=== PATIENT | male | born 1965 | race African-American/Black ===

== ENCOUNTER 2020-09-16 05:16 | Emergency (ER) | payer OTHER ==
[~2020-09-16] VITALS: Ht 172.7 cm; Wt 81.8 kg
[2020-09-16] MEDS ORDERED: ASPIRIN CHEWABLE 81 MG TABLET. PO ONE (06:00)
--- NOTE | 2020-09-16 06:03 | RAD ---
Study: CR PORTABLE CHEST 1V Indication: Chest pain. Comparison: None. Findings: Unremarkable cardiomediastinal silhouette and linda. No lobar consolidation, pleural effusion or pneumothorax. Chronic changes seen at the right lung apex. The diaphragm is mildly flattened and the lungs are relatively hyperexpanded with the inner margin of the diaphragm at the level of the 12th ribs. Impression: 1. No acute radiographic abnormality of the chest. 2. Relative hyperexpansion of the lungs could be physiologic from aggressive inspiratory excursion or indicative of underlying COPD. Recommend correlation for a smoking history. Electronically signed by: ALEXANDRA YEPEZ MD (09/16/2020 6:01 AM) [id number]
[2020-09-16 06:12] LABS: BASO # 0.1 x10^3/uL (0.0-0.2); BASO % 1 % (0-3); EOS # 0.3 x10^3/uL (0.0-0.7); EOS % 4 % (0-3); HEMOGLOBIN 14.5 g/dL (13.0-17.5); LYMPH # 3.6 x10^3/uL (1.0-4.8); LYMPH % 40 % (24-48); MEAN CORPUSCULAR HEMOGLOBIN 35 pg (25-35); MEAN CORPUSCULAR HGB CONC 35 g/dL (31-37); MEAN CORPUSCULAR VOLUME 100 fL (79-100); MONO # 0.8 x10^3/uL (0.0-1.1); MONO % 9 % (0-9); NEUT # 4.2 x10^3/uL (1.8-7.7); NEUT % 47 % (31-73); PLATELET COUNT 201 x10^3/uL (140-400)
[2020-09-16 06:17] LABS: CALCIUM 8.8 mg/dL (8.5-10.1); CREATININE 1.2 mg/dL (0.7-1.3); GFR 76.6; POTASSIUM 3.5 mmol/L (3.5-5.1)
[2020-09-16 06:23] LABS: ALBUMIN 3.9 g/dL (3.4-5.0); ALBUMIN/GLOBULIN RATIO 1.1 (1.0-1.7); TOTAL PROTEIN 7.6 g/dL (6.4-8.2)
--- NOTE | 2020-09-16 06:23 | PHYS DOC ---
Past Medical History Past Medical History: No Pertinent History Past Surgical History: Other Additional Past Surgical Histo: Oral surgery. Smoking Status: Current Every Day Smoker Alcohol Use: Occasionally Drug Use: Marijuana General Adult EDM: Chief Complaint: CHEST PAIN HPI: HPI: Patient is a 55 year old male presents with report of substernal chest discomfort with radiation to his left arm x1 day. Patient reports some increased life stressors including the passing of his mother. Patient reports he has also been drinking more than normal over the last few days because of this. Patient presents today due to this discomfort. Patient reports he did have some relief after belching. Denies symptoms getting worse with any movement. Denies leg swelling or calf tenderness. Denies history of PE/DVT. Cardiac risk factors include family history of CAD and smoking. Denies any fever or chills. Denies known exposure to COVID-19. Review of Systems: Review of Systems: Constitutional: Denies fever or chills Eyes: Denies redness or eye pain HENT: Denies nasal congestion or sore throat Respiratory: Denies cough or shortness of breath Cardiovascular: Reports chest pain; denies palpitations GI: Denies abdominal pain, nausea, or vomiting : Denies dysuria or hematuria Musculoskeletal: Denies back pain; reports left arm pain Integument: Denies rash or skin lesions Neurologic: Denies headache, focal weakness or sensory changes Complete systems were reviewed and found to be within normal limits, except as documented in this note. Heart Score: HEART Score for Chest Pain: HEART Score for Chest Pain Response (Comments) Value History Moderately Suspicious 1 ECG Normal 0 Age >45 - < 65 1 Risk Factors 1 or 2 Risk Factors 1 Troponin < Normal Limit 0 Total 3 Risk Factors: Risk Factors: DM, Current or recent (<one month) smoker, HTN, HLP, family history of CAD, obesity. Risk Scores: Score 0 - 3: 2.5% MACE over next 6 weeks - Discharge Home Score 4 - 6: 20.3% MACE over next 6 weeks - Admit for Clinical Observation Score 7 - 10: 72.7% MACE over next 6 weeks - Early Invasive Strategies Current Medications: Current Medications Medications (Trade) Dose Ordered Sig/Martha Start Time Stop Time Status Last Admin Dose Admin Aspirin (Aspirin Chewable) 324 mg 1X ONCE 09/16/20 06:00 09/16/20 06:01 DC 09/16/20 05:48 324 MG Allergies: Allergies: Allergies Coded Allergies Type Severity Reaction Last Updated Verified No Known Drug Allergies 09/16/20 No Physical Exam: PE: Constitutional: Well developed, well nourished, no acute distress, non-toxic appearance HENT: Normocephalic, atraumatic Eyes: Conjunctiva normal, no discharge Neck: Normal range of motion, no tenderness, supple Lungs & Thorax: No respiratory distress, equal chest rise and fall Abdomen: Soft, no tenderness, no guarding/rebound tenderness/distention Skin: Warm, dry, no erythema, no rash Back: No tenderness, no CVA tenderness Extremities: No tenderness, ROM intact, no edema Neurologic: Alert and oriented X 3, no focal deficits noted Psychologic: Affect normal, judgment normal Current Patient Data: Labs: Laboratory Tests Test 09/16/20 05:25 Sodium Level 139 mmol/L (136-145) Potassium Level 3.5 mmol/L (3.5-5.1) Chloride Level 101 mmol/L (98-107) Carbon Dioxide Level 29 mmol/L (21-32) Anion Gap 9 (6-14) Blood Urea Nitrogen 10 mg/dL (8-26) Creatinine 1.2 mg/dL (0.7-1.3) Estimated GFR (Cockcroft-Gault) 76.6 BUN/Creatinine Ratio 8 (6-20) Glucose Level 97 mg/dL (70-99) Calcium Level 8.8 mg/dL (8.5-10.1) Total Bilirubin Pending Aspartate Amino Transferase (AST) Pending Alanine Aminotransferase (ALT) Pending Alkaline Phosphatase Pending Total Protein Pending Albumin Pending Albumin/Globulin Ratio Pending Lipase Pending Laboratory Tests 09/16/20 05:25 Vital Signs: Vital Signs Date Time Temp Pulse Resp B/P (MAP) Pulse Ox O2 Delivery O2 Flow Rate FiO2 09/16/20 06:20 89 20 165/98 (120) 100 Room Air 09/16/20 05:25 98.1 98.1 EKG: EKG: @0524 Sinus tachycardia at 108bpm, NO ST elevation, QRS 86ms, QT/QTc 344/465ms Radiology/Procedures: Radiology/Procedures: PROCEDURE: PORTABLE CHEST 1V Study: CR PORTABLE CHEST 1V Indication: Chest pain. Comparison: None. Findings: Unremarkable cardiomediastinal silhouette and linda. No lobar consolidation, pleural effusion or pneumothorax. Chronic changes seen at the right lung apex. The diaphragm is mildly flattened and the lungs are relatively hyperexpanded with the inner margin of the diaphragm at the level of the 12th ribs. Impression: 1. No acute radiographic abnormality of the chest. 2. Relative hyperexpansion of the lungs could be physiologic from aggressive inspiratory excursion or indicative of underlying COPD. Recommend correlation for a smoking history. Electronically signed by: ALEXANDRA YEPEZ MD (09/16/2020 6:01 AM) [id number] Course & Med Decision Making: Course & Med Decision Making Pertinent Labs and Imaging studies reviewed. (See chart for details) Patient presents with chest pain and radiation to left arm. History of i ncreased life stressors. Patient also has increased his alcohol intake recently. Patient reports symptoms better after belching. Patient does have some cardiac risk factors including family and smoking history . EKG stable. Labs obtained and posted to chart. LFTs/lipase within normal limits. Troponin also within normal limits. Chest x-ray clear. Patient reports symptoms have resolved. HEART score 3. Symptoms appear more likely gastritis in nature due to increased life stressors and/or increased ETOH intake. Advised to hold ETOH and other irritants at this time. Pepcid prescribed. Patient stable for discharge with outpatient follow-up with PCP/GI. Advised to return for any change or worsening of symptoms. Discussed findings and plan with patient, who acknowledges understanding and agreement. Aristides Disclaimer: Aristides Disclaimer: This electronic medical record was generated, in whole or in part, using a voice recognition dictation system. Departure Departure Impression: Primary Impression: Chest pain Qualified Codes: R07.9 - Chest pain, unspecified Disposition: 01 DC HOME SELF CARE/HOMELESS Condition: STABLE Referrals: NO PCP (PCP) ALICIA ELLIS MD, SCOTT S MD Patient Instructions: Chest Pain (Nonspecific), [id number], Gastritis, Adult, [id number] Scripts Famotidine (PEPCID) 20 Mg Tablet 20 MG PO BID, #20 TAB Prov: NICO SIMONS DO 09/16/20 NICO SIMONS DO Sep 16, 2020 06:23
[2020-09-16 06:26] LABS: PROTHROMBIN TIME PATIENT 13.5 SEC (11.7-14.0)
[2020-09-16] MEDS ORDERED: FAMO-63 PO (07:00)
[2020-09-16 07:04] VITALS: BP 156/94
--- NOTE | 2020-09-16 16:21 | EKG ---
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
== END 2020-09-16 07:25 | disposition home or self-care (01) ==
LOC: ER 05:16
DX: R07.2 Precordial pain (principal); M79.602 Pain in left arm; R00.0 Tachycardia, unspecified; F17.200 Nicotine dependence, unspecified, uncomplicated
CPT/HCPCS: 36415; 71045; 80053; 83690; 83880; 84484; 85025; 85610; 85730; 93005; 99285-25